=== PATIENT | female | born 1995 | race Two or more races ===

== ENCOUNTER 2020-11-11 04:29 | Emergency (ER) | payer OTHER ==
[~2020-11-11] VITALS: Ht 162.6 cm; Wt 54.4 kg
[2020-11-11] MEDS ORDERED: PROZAC40 MG PO (04:47)
== END 2020-11-11 09:15 | disposition home or self-care (01) ==
LOC: ER 04:29
DX: G44.89 Other headache syndrome (principal); Z03.818 Encounter for observation for suspected exposure to other biological agents ruled out

== ENCOUNTER 2021-03-03 20:13 | Emergency (ER) | payer OTHER ==
[~2021-03-03] VITALS: Ht 162.6 cm; Wt 59.0 kg
[~2021-03-03 20:13] MED LIST: PROZAC40 MG PO
== END 2021-03-04 02:34 | disposition home or self-care (01) ==
LOC: ER 20:13
DX: J40 Bronchitis, not specified as acute or chronic (principal); J01.80 Other acute sinusitis

== ENCOUNTER 2021-11-03 11:57 | Emergency (ER) | payer OTHER ==
[~2021-11-03] VITALS: Ht 162.6 cm; Wt 59.0 kg
[2021-11-03] MEDS ORDERED: NORFLEX100MG PO (16:17)
[2021-11-03] MEDS ORDERED: LEVOFLOXACIN500 MG PO (16:17)
== END 2021-11-03 16:30 | disposition home or self-care (01) ==
LOC: ER 11:57
DX: R51.9 Headache, unspecified (principal)

== ENCOUNTER 2021-12-10 20:50 | Emergency (ER) | payer OTHER ==
[~2021-12-10] VITALS: Ht 162.6 cm; Wt 61.2 kg
[~2021-12-10 20:50] MED LIST changes: +LEVOFLOXACIN500 MG PO; +NORFLEX100MG PO
== END 2021-12-11 00:31 | disposition home or self-care (01) ==
LOC: ER 20:50
DX: K59.00 Constipation, unspecified (principal); R11.10 Vomiting, unspecified; Z91.011 Allergy to milk products; Z88.8 Allergy status to other drugs, medicaments and biological substances; Z91.09 Other allergy status, other than to drugs and biological substances